=== PATIENT | male | born 1995 | race African-American/Black ===

== ENCOUNTER 2021-07-21 18:11 | Emergency (ER) | payer OTHER ==
[~2021-07-21] VITALS: Ht 193 cm; Wt 120.0 kg
[2021-07-21 18:16] VITALS: BP 137/74
[2021-07-21 20:27] LABS: RSV AMPLIFICATION NEGATIVE (NEGATIVE)
== END 2021-07-21 23:03 | disposition home or self-care (01) ==
LOC: M ED 18:11
DX: R07.89 Other chest pain (principal); R06.02 Shortness of breath